=== PATIENT | male | born 1950 | race Caucasian/White ===

== ENCOUNTER 2017-03-04 12:09 | Observation (INO) | payer MEDICARE, OTHER ==
[~2017-03-04] VITALS: Ht 193 cm; Wt 99.0 kg
[2017-03-04 12:37] LABS: BASO % 0.1 % (0.2-1.2); GRAN # 10.4 10_X3_uL (1.8-5.4); GRAN % 77.9 % (34.0-67.9); HEMOGLOBIN 14.4 g/dL (13.7-17.5); LYMPH # 2.4 10_X3_uL (1.3-3.6); LYMPH % 17.8 % (21.8-53.1); MEAN CORPUSCULAR HEMOGLOBIN 28.4 pg (27.0-33.0); MEAN CORPUSCULAR HGB CONC 35.1 g/dL (32.0-36.0); MEAN CORPUSCULAR VOLUME 80.9 fL (79-92); MEAN PLATELET VOLUME 10.5 fl (7.5-11.5); MONO # 0.6 10_X3_uL (0.3-0.8); MONO % 4.2 % (5.3-12.2); PLATELET COUNT 308 x10_3/uL (163-337); RED BLOOD COUNT 5.07 x10_6/uL (4.6-6.1); RED CELL DISTRIBUTION WIDTH 13.4 % (11.6-14.4); WHITE BLOOD COUNT 13.4 x10_3/uL (4.2-9.1)
[2017-03-04 12:51] LABS: ALBUMIN 3.9 gm/dL (3.4-5.0); ALKALINE PHOSPHATASE 64 U/L (50-136); ALT/SGPT 14 U/L (7.53-40.17); AST/SGOT 16 U/L (6.66-35.34); BLOOD UREA NITROGEN 26 mg/dL (7-18); CALCIUM 9.6 mg/dL (8.7-10.7); CARBON DIOXIDE 18 mmol/L (21-32); CREATINE KINASE 30 U/L (35-232); CREATININE 1.1 mg/dL (0.6-1.3); GLUCOSE,RANDOM 222 mg/dL (70-99); LIPASE 11 U/L (6.75-60.75); POTASSIUM 3.8 mmol/L (3.5-5.1); SODIUM 138 mmol/L (136-145); TOTAL PROTEIN 7.4 gm/dL (6.4-8.2)
[2017-03-05 06:38] LABS: BASO % 0.1 % (0.2-1.2); EOS % 0.1 % (0.8-7.0); GRAN # 6.7 10_X3_uL (1.8-5.4); GRAN % 69.5 % (34.0-67.9); HEMATOCRIT 36.3 % (40-51); HEMOGLOBIN 12.4 g/dL (13.7-17.5); LYMPH % 20.7 % (21.8-53.1); MEAN CORPUSCULAR HEMOGLOBIN 28.8 pg (27.0-33.0); MEAN CORPUSCULAR HGB CONC 34.2 g/dL (32.0-36.0); MEAN CORPUSCULAR VOLUME 84.4 fL (79-92); MEAN PLATELET VOLUME 10.5 fl (7.5-11.5); MONO # 0.9 10_X3_uL (0.3-0.8); MONO % 9.6 % (5.3-12.2); PLATELET COUNT 254 x10_3/uL (163-337); RED CELL DISTRIBUTION WIDTH 13.6 % (11.6-14.4); WHITE BLOOD COUNT 9.7 x10_3/uL (4.2-9.1)
[2017-03-05 06:50] LABS: AHDL CHOLESTEROL 27 mg/dL (>40); BLOOD UREA NITROGEN 23 mg/dL (7-18); CALCIUM 8.6 mg/dL (8.7-10.7); CARBON DIOXIDE 23 mmol/L (21-32); CHOLESTEROL 148 mg/dL (0-200); CREATININE 1.1 mg/dL (0.6-1.3); GLUCOSE,RANDOM 215 mg/dL (70-99); LDL CHOLESTEROL 103 mg/dL (0-99); POTASSIUM 4.4 mmol/L (3.5-5.1); SODIUM 140 mmol/L (136-145); TRIGLYCERIDES 120 mg/dL (30-200)
== END 2017-03-05 13:28 | disposition home or self-care (01) ==
LOC: ER 12:09 → MS 16:19 → UNDODEPER 03-08 10:44
PROVIDERS: Internal Medicine; ADMIT Family Medicine
DX: E86.0 Dehydration (principal); R11.2 Nausea with vomiting, unspecified; I10 Essential (primary) hypertension; E11.9 Type 2 diabetes mellitus without complications; Z95.1 Presence of aortocoronary bypass graft; Z94.0 Kidney transplant status; F17.210 Nicotine dependence, cigarettes, uncomplicated; Z80.9 Family history of malignant neoplasm, unspecified; Z82.49 Family history of ischemic heart disease and other diseases of the circulatory system; Z83.6 Family history of other diseases of the respiratory system; Z79.899 Other long term (current) drug therapy; Z79.82 Long term (current) use of aspirin
CPT/HCPCS: 36415; 80048; 80053; 80061; 82550; 82553; 82962; 83036; 83690; 85025; 93005; 96361; 96374; 96375; 96376; 99070; 99284; 99285-25; G0378; Q0169